=== PATIENT | female | born 1990 | race Caucasian/White ===

== ENCOUNTER 2020-07-22 19:19 | Emergency (ER) | payer OTHER, SELFPAY ==
[2020-07-22] VITALS (18 sets, daily range): BP systolic 108–152; BP diastolic 66–94; PULSE 85–118; RESP 16–18; TEMP 36.6–37.1; O2SAT 93–100
[2020-07-22 19:43] LABS: Basophils Absolute Auto 0.1 K/mm3 (0.0-0.1); Basophils Percent Auto 0.5 % (0.2-1.2); Eosinophils Absolute Auto 0.3 K/mm3 (0-0.3); Eosinophils Percent Auto 2.3 % (0-4.4); Hematocrit 43.4 % (37.0-47.0); Hemoglobin 14.7 g/dL (12.0-15.0); Immature Granulocyte Absolute 0.04 K/mm3 (0.00-0.031); Immature Granulocyte Percent A 0.3 % (0-0.5); Lymphocytes Percent Auto 23.8 % (18.3-44.2); Mean Corpuscular HGB Conc 33.9 g/dl (32-36); Mean Corpuscular Hemoglobin 29.5 pg (26-34); Mean Corpuscular Volume 87.1 fl (80-100); Mean Platelet Volume 8.9 fl (7.4-10.4); Monocytes Absolute Auto 0.5 K/mm3 (0.1-0.6); Monocytes Percent Auto 4.3 % (2.6-8.5); Neutrophils Absolute Auto 8.7 K/mm3 (1.3-6.7); Neutrophils Percent Auto 68.8 % (45.5-73.1); Platelet Count Result 275 k/mm3 (150-375); Red Blood Count 4.98 M/mm3 (4.2-5.4); Red Cell Distribution Width 12.3 % (11.5-14.5); White Blood Count 12.6 K/mm3 (4.5-10.0)
[2020-07-22 19:53] LABS: Add Urine Microscopic? YES; Appearance Urine Cloudy (Clear); Bilirubin Urine Negative (Negative); Blood Urine Negative (Negative); Color Urine Yellow (Yellow); Glucose Urine UA Negative (Negative); Ketones Urine Negative (Negative); Leukocyte Esterase Ur 2+ LEU/UL (Negative); Mucus Urine Rare /lpf; Nitrate Urine Negative (Negative); Protein Urine Negative (Negative); Specific Grav Ur 1.024 (1.001-1.035); Squamous Epithelial Cell Urine Many /hpf (Few); Urobilinogen Urine Negative mg/dL (<2.0); WBC Urine 21-30 /hpf
[2020-07-22 19:58] LABS: Alanine Aminotransferase 42 U/L (4-35); Albumin Level 4.8 g/dL (3.5-5.1); Alkaline Phosphatase 80 U/L (38-126); Anion Gap 12 mmol/L (8-16); Aspartate Amino Transferase 34 U/L (14-36); Bilirubin,Total 0.5 mg/dL (0.2-1.3); Blood Urea Nitrogen 14 mg/dL (7-17); Calcium 9.7 mg/dL (8.4-10.2); Carbon Dioxide 23 mmol/L (22-30); Chloride 105 mmol/L (98-107); Estimated CRCL calculation 91 ml/min; Estimated Glomerular Filt Rate > 60; Glucose 97 mg/dL (65-105); Lipase 46 U/L (23-300); Potassium 3.8 mmol/L (3.4-5.0); Sodium 140 mmol/L (137-145)
--- NOTE | 2020-07-22 20:08 | PC.NURSE ---
pt ambulatory to ED c/o lower bilateral abd/pelvic pain radiating to both flanks. pt denies urinary s/s. denies burning, pain, frequency with urination. denies vaginal bleeding/discharge. hx of uti and hx kidney stones, reports pain feels the same.
[2020-07-22] MEDS: SODIUM CHLORIDE 0.9% IV 1,000 ML 999 ML IV CONT (21:59)
--- NOTE | 2020-07-22 22:08 | ED.ABDPAIN ---
HPI - Abdominal Pain General Chief Complaint: Abdominal Pain Stated Complaint: abd pain/ back pain Time Seen by Provider: 07/22/20 19:50 Source: patient Mode of arrival: ambulatory Limitations: no limitations History of Present Illness HPI narrative: 30-year-old female Basically healthy but she has had UTIs and kidney stones before She complains of several days of burning low midline abdominal discomfort and some dysuria Pain radiates up into both flanks and is relatively constant She has not had a fever, she did have some nausea but has not vomited, no hematuria, no diarrhea Her periods are irregular because of an implant, she has a previous cholecystectomy Related Data Allergies Allergy/AdvReac Type Severity Reaction Status Date / Time ciprofloxacin Allergy Unknown Hives Verified 07/22/20 20:14 Penicillins Allergy Unknown Unknown Verified 07/22/20 20:14 sulfamethizole Allergy Unknown Hives Verified 07/22/20 20:14 trimethoprim Allergy Unknown Rash Verified 07/22/20 20:14 sulfamethoxazole AdvReac Severe Nausea and Verified 11/17/17 10:13 Vomiting Review of Systems Review of Systems: All systems reviewed & are unremarkable except as noted in HPI and below Constitutional: Constitutional: Reports no additional constitutional complaints, Denies chills, Denies fever(s) and Denies headache(s) Eyes: Eyes: Reports no additional eye complaints and Denies change in vision ENT: Denies headache(s) and Denies sore throat Cardiovascular: Cardiovascular: Denies chest pain and Denies dyspnea Respiratory: Respiratory: Denies cough and Denies dyspnea Gastrointestinal: Gastrointestinal: Reports abdominal pain, Denies diarrhea, Reports nausea and Denies vomiting Genitourinary: Genitourinary: Denies urinary frequency, Reports dysuria and Reports flank pain Musculoskeletal: Musculoskeletal: Denies deformity, Denies arthralgias, Denies joint swelling and Denies numbness Integumentary/Breasts: Skin/Breast: Denies rash and Denies wounds Neurologic: Denies headache(s), Denies focal weakness and Denies numbness Psychiatric: Psychiatric: Reports no additional psychiatric complaints Endocrine: Endocrine: Reports no additional endocrine complaints Hematologic/Lymphatic: Hematologic/Lymphatic: Reports no additional hematologic/lymphatic complaints Allergic/Immunologic: Allergic/Immunologic: Reports no additional allergic/immunologic complaints [facility] Family History Family History (Updated 11/25/17 @ 13:40 by DOCTOR UNKNOWN) Other Diabetes mellitus Family history of arthritis Hypertension Social History Social History Smoking status: Never smoker Alcohol intake: current Exam Const: General: cooperative, healthy appearing, no acute distress and alert Orientation/consciousness: patient oriented x3 (alert) HENMT: Head: normal to inspection, normocephalic and atraumatic Ears: external ears normal General nose exam: no epistaxis Eyes: Conjunctivae: conjunctivae normal EOM: EOMs intact bilaterally Neck: Neck: normal visual inspection, supple and no JVD Resp: Effort & Inspection: normal respiratory effort and not labored Auscultation: no rales, no rhonchi, no wheezes and other (BS =) Cardio: Rate: regular rate Rhythm: regular rhythm Heart sounds: no murmurs GI: GI Palp: Yes Soft to palpation, Yes Tenderness to palpation present (GI) (Mild, suprapubic), No Guarding due to palpation present (GI) and No Rebound tenderness present : General: Yes CVA tenderness (Mild, bilateral) Skin: General skin exam: normal color and no rashes or lesions noted Neuro: General: patient oriented x3 (alert) and moves all extremities Speech: normal speech Extrem: General: normal to inspection and no pedal edema Psych: Affect: normal affect Course Course Emergency Course: Discussed with patient regarding her allergies which do sound like real hives with Cipro or Bactrim, but some unknown childhood issue with p
== END 2020-07-22 23:33 | disposition home or self-care (01) ==
PROVIDERS: Emergency Provider Emergency Medicine; PCP Physician Assistant
DX: N15.9 Renal tubulo-interstitial disease, unspecified (principal); Z87.442 Personal history of urinary calculi
CPT/HCPCS: 36415; 80053; 81001; 81025; 83690; 85025; 87086; 87088; 96365; 99284; J0696; J7030

== ENCOUNTER 2020-09-06 08:17 | Emergency (ER) | payer OTHER, SELFPAY ==
--- NOTE | ~2020-09-06 | XR_ITS ---
EXAMINATION: XR chest 1V portable 09/06/2020 09:01 INDICATION: Fever and weakness. Prior history of pneumonia. PROCEDURE: AP portable chest COMPARISON: No prior studies for comparison. FINDINGS: The lungs are clear. The cardiomediastinal silhouette is within normal limits. There are no pleural effusions. There is no pneumothorax suspected. IMPRESSION: 1: NO ACUTE CARDIOPULMONARY DISEASE. Reviewed, dictated and finalized at location A.
[2020-09-06 08:23] VITALS: BP 107/80; PULSE 92; RESP 16; TEMP 36.5; O2SAT 100
--- NOTE | 2020-09-06 08:48 | ECG_ITS ---
Measurements Intervals [place] Rate: 74 P: 31 GA: 141 QRS: -8 QRSD: 88 T: 13 QT: 372 QTc: 414 Interpretive Statements SINUS RHYTHM BORDERLINE T WAVE ABNORMALITY- INFERIOR LEADS BASELINE ARTIFACT- II, III, AVR, AVL, AVF, V2-V6 BORDERLINE ECG Electronically Signed On 09-06-2020 10:29:55 CDT by Fabio Bradford D.O.
[2020-09-06 09:12] LABS: Basophils Percent Auto 0.6 % (0.2-1.2); Eosinophils Absolute Auto 0.3 K/mm3 (0-0.3); Eosinophils Percent Auto 4.2 % (0-4.4); Hematocrit 43.2 % (37.0-47.0); Hemoglobin 14.7 g/dL (12.0-15.0); Immature Granulocyte Absolute 0.03 K/mm3 (0.00-0.031); Immature Granulocyte Percent A 0.4 % (0-0.5); Lymphocytes Absolute Auto 1.77 K/mm3 (0.9-3.2); Mean Corpuscular Hemoglobin 29.5 pg (26-34); Mean Corpuscular Volume 86.7 fl (80-100); Mean Platelet Volume 9.4 fl (7.4-10.4); Monocytes Absolute Auto 0.4 K/mm3 (0.1-0.6); Monocytes Percent Auto 6.1 % (2.6-8.5); Neutrophils Absolute Auto 4.5 K/mm3 (1.3-6.7); Neutrophils Percent Auto 63.7 % (45.5-73.1); Platelet Count Result 240 k/mm3 (150-375); Red Blood Count 4.98 M/mm3 (4.2-5.4); Red Cell Distribution Width 11.9 % (11.5-14.5); White Blood Count 7.1 K/mm3 (4.5-10.0)
[2020-09-06 09:21] LABS: INR 0.8; Prothrombin Time 11.3 Seconds (11.1-14.7)
[2020-09-06 09:22] LABS: Partial Thromboplastin Time 25.2 SECONDS (22.3-36.8)
--- NOTE | 2020-09-06 09:22 | ED.FEVER ---
HPI - Fever General Chief Complaint: Fever Stated Complaint: Possible seizure Time Seen by Provider: 09/06/20 08:23 Source: patient and RN notes reviewed Mode of arrival: ambulatory Limitations: no limitations History of Present Illness HPI Narrative: This is 30 year old female who presents for evaluation of fever. She states she woke up this morning at 3 am. She states she was sleeping under a weighted blanket. She felt hot so she checked her temperature and it was 103 F. Soon after , she states she was shaking all over uncontrollably. She states it was similar to when she received an epidural. She was awake when this occurred and it lasted 2 minutes. She reports mild low back pain and fatigue. She took ibuprofen this morning. She denies chest pain, abdominal pain, nausea, vomiting, cough, shortness of breath or headache. She reports runny nose and sinus congestion thought to be due to seasonal allergies. She states she had covid in December and this feels different. Related Data Allergies Allergy/AdvReac Type Severity Reaction Status Date / Time ciprofloxacin Allergy Unknown Hives Verified 07/22/20 20:14 Penicillins Allergy Unknown Unknown Verified 07/22/20 20:14 sulfamethizole Allergy Unknown Hives Verified 07/22/20 20:14 trimethoprim Allergy Unknown Rash Verified 07/22/20 20:14 sulfamethoxazole AdvReac Severe Nausea and Verified 11/17/17 10:13 Vomiting Review of Systems Review of Systems: All systems reviewed & are unremarkable except as noted in HPI and below PMFSH Past Medical History Medical History (Updated 09/06/20 @ 11:24 by Michelle Blackburn MD) Anxiety Depression UTI (urinary tract infection) Surgical History Surgical History (Updated 09/06/20 @ 10:50 by Michelle Blackburn MD) Hx of cholecystectomy Family History Family History (Updated 11/25/17 @ 13:40 by DOCTOR UNKNOWN) Other Diabetes mellitus Family history of arthritis Hypertension Social History Social History Smoking status: Never smoker Alcohol intake: current Exam Const: General: no acute distress and alert Orientation/consciousness: patient oriented x3 HENMT: Head: normocephalic and atraumatic Ears: hearing grossly normal bilaterally and TM's normal bilaterally Face and sinus: normal facial exam, sinuses nontender and face symmetric Mouth: Yes Normal oral and palatal mucosa present, Yes lip normal, Yes oropharynx normal and Yes moist mucous membranes Eyes: Pupils: Equal, round and reactive pupils present EOM: EOMs intact bilaterally Resp: Effort & Inspection: normal respiratory effort and no retractions Auscultation: clear to auscultation bilaterally Cardio: Rate: regular rate Rhythm: regular rhythm Heart sounds: no murmurs GI: GI Palp: Yes Soft to palpation, No Tenderness to palpation present (GI) and No Guarding due to palpation present (GI) Auscultation: normal bowel sounds : General: Yes no CVA tenderness Skin: General skin exam: normal color Rashes: no rashes Neuro: General: patient oriented x3, moves all extremities and CN's II-XI intact bilaterally Extrem: General: normal to inspection Psych: Mental Status: mental status grossly normal Affect: normal affect Course Reevaluation(s) Reevaluation #1: I have discussed with patient that labs are unremarkable other than urine. She will be started on antibiotics. she denies any complaints and she understands discharge plan. Her shaking sounds like rigors. She has normal neuro exam so I do not think CT brain needed at this time. Date: 09/06/20 Time: 11:22 Vital Signs Vital signs: Vital Signs Temperature 97.7 F 09/06/20 08:23 Pulse Rate 92 09/06/20 08:23 Respiratory Rate 16 09/06/20 08:23 Blood Pressure 107/80 09/06/20 08:23 Pulse Oximetry 100 09/06/20 08:23 Temperature 97.7 F 09/06/20 08:23 Pulse Rate 79 09/06/20 11:38 Respiratory Rate 19 09/06/20 11:38 Blood Pressure 121/84 09/06/20 11:3
[2020-09-06 09:24] LABS: Alanine Aminotransferase 49 U/L (4-35); Albumin Level 4.6 g/dL (3.5-5.1); Alkaline Phosphatase 75 U/L (38-126); Anion Gap 12 mmol/L (8-16); Aspartate Amino Transferase 48 U/L (14-36); Bilirubin,Total 0.8 mg/dL (0.2-1.3); Blood Urea Nitrogen 11 mg/dL (7-17); CRP 2.1 mg/dL (<1.0); Calcium 9.5 mg/dL (8.4-10.2); Carbon Dioxide 22 mmol/L (22-30); Chloride 103 mmol/L (98-107); Estimated CRCL calculation 102 ml/min; Estimated Glomerular Filt Rate > 60; Glucose 118 mg/dL (65-110); Potassium 4.5 mmol/L (3.4-5.0); Sodium 137 mmol/L (137-145)
[2020-09-06 09:31] LABS: Add Urine Microscopic? YES; Appearance Urine Clear (Clear); Bacteria Urine Trace /hpf; Bilirubin Urine Negative (Negative); Blood Urine Negative (Negative); Color Urine Yellow (Yellow); Glucose Urine UA Negative (Negative); Ketones Urine Negative (Negative); Leukocyte Esterase Ur 2+ LEU/UL (Negative); Mucus Urine Moderate /lpf; Nitrate Urine Negative (Negative); Protein Urine Negative (Negative); Specific Grav Ur 1.027 (1.001-1.035); Squamous Epithelial Cell Urine Many /hpf (Few); Urobilinogen Urine Negative mg/dL (<2.0); WBC Urine 31-50 /hpf
--- NOTE | 2020-09-06 09:31 | PC.NURSE ---
lab, jana donaldson
[2020-09-06 09:39] LABS: Creatine Kinase 78 U/L (30-135)
[2020-09-06] MEDS: SODIUM CHLORIDE 0.9% IV 1,000 ML 999 ML IV CONT (09:45)
[2020-09-06 11:38] VITALS: BP 121/84; PULSE 79; RESP 19; O2SAT 100
[2020-09-06 18:52] LABS: SARS-CoV-2 RNA PCR Negative
== END 2020-09-06 11:41 | disposition home or self-care (01) ==
PROVIDERS: Emergency Provider General Practice; PCP Physician Assistant
DX: N39.0 Urinary tract infection, site not specified (principal); R50.9 Fever, unspecified; Z86.16 Personal history of COVID-19; Z20.822 Contact with and (suspected) exposure to COVID-19; R94.31 Abnormal electrocardiogram [ECG] [EKG]
CPT/HCPCS: 36415; 71045; 80053; 81001; 82550; 83605; 85025; 85610; 85730; 86140; 87077; 87081; 87086; 87088; 87804; 87880; 93005; 96361; 96365; 99284; C9803; J0696; J7030; U0003; U0005

== ENCOUNTER 2021-02-05 15:14 | Emergency (ER) | payer OTHER, SELFPAY ==
--- NOTE | ~2021-02-05 | XR_ITS ---
EXAMINATION: XR chest 1V portable INDICATION: Chest heaviness and cough TECHNIQUE: Portable AP chest at 1642 hours COMPARISON: 09/06/2020 FINDINGS: There are patchy airspace opacities of the mid and lower lung zones. No pleural effusion or pneumothorax is identified. The cardiomediastinal silhouette is normal. IMPRESSION: 1. Patchy opacities of the mid and lower lung zones, likely pneumonia. Reviewed, dictated and finalized at location F. MER OPERATOR
--- NOTE | 2021-02-05 15:18 | ECG_ITS ---
Measurements Intervals [place] Rate: 81 P: 33 MT: 127 QRS: 24 QRSD: 92 T: 11 QT: 356 QTc: 414 Interpretive Statements SINUS RHYTHM BASELINE ARTIFACT- I, III, AVL NORMAL ECG Electronically Signed On 02-05-2021 15:39:08 [employer] by Fabio Bradford D.O.
[2021-02-05 15:20] VITALS: BP 117/61; PULSE 85; RESP 16; TEMP 36.2; O2SAT 100
--- NOTE | 2021-02-05 16:49 | ED.URI ---
HPI - URI/Sore Throat General Chief Complaint: Upper Respiratory Infection Stated Complaint: covid exposure/chest pressure Time Seen by Provider: 02/05/21 16:30 Source: patient Mode of arrival: ambulatory Limitations: no limitations History of Present Illness HPI Narrative: Patient presents with Covid symptoms, coughing, sore throat, body ache, loss of taste and smell over the last 2 to 3 days. Patient son tested positive for Covid Related Data Allergies Allergy/AdvReac Type Severity Reaction Status Date / Time ciprofloxacin Allergy Unknown Hives Verified 07/22/20 20:14 Penicillins Allergy Unknown Unknown Verified 07/22/20 20:14 sulfamethizole Allergy Unknown Hives Verified 07/22/20 20:14 trimethoprim Allergy Unknown Rash Verified 07/22/20 20:14 sulfamethoxazole AdvReac Severe Nausea and Verified 11/17/17 10:13 Vomiting Review of Systems Review of Systems: CONSTITUTIONAL: Denies fever, chills, or sweats. EYES: Denies visual changes, redness, or discharge. ENT: Denies rhinorrhea, congestion, sore throat, or otalgia. CARDIOVASCULAR: Denies chest pain, palpitations, or edema. RESPIRATORY: Denies cough or dyspnea. GASTROINTESTINAL: Denies abdominal pain, nausea, vomiting, or diarrhea. GENITOURINARY: Denies dysuria or hematuria. SKIN: Denies rash or itching. MUSCULOSKELETAL: Denies back pain, joint pain, or myalgia. NEUROLOGIC: Denies headache, numbness, or weakness. PSYCHIATRIC: Denies anxiety or depression. PMFSH Past Medical History Medical History Anxiety Depression UTI (urinary tract infection) Surgical History Surgical History Hx of cholecystectomy Family History Family History Other Diabetes mellitus Family history of arthritis Hypertension Social History Social History Smoking status: Never smoker Alcohol intake: current Exam Narrative: General appearance: Well-developed, well-nourished does not look in any respiratory distress Skin: Normal color Head: Normocephalic, nontraumatic Eyes: Clear conjunctiva ENT: Oropharynx normal, ears normal, nose normal Neck: Supple, nontender Chest and respiratory: Airway patent, no respiratory distress, no accessory muscle use Heart: Regular rate/rhythm Abdomen: Soft, nontender, no organomegaly, quiet bowel sounds Vascular: Normal peripheral pulses, normal capillary refill. Musculoskeletal: Normal range of motion, nontender back Neurologic: Alert and oriented ?3, [employer] is normal as tested, no gross motor deficit Course Course Emergency Course: Stable Vital Signs Vital signs: Vital Signs Temperature 36.2 C L 02/05/21 15:20 Pulse Rate 85 02/05/21 15:20 Respiratory Rate 16 02/05/21 15:20 Blood Pressure 117/61 02/05/21 15:20 Pulse Oximetry 100 02/05/21 15:20 Temperature 36.2 C L 02/05/21 15:20 Pulse Rate 85 02/05/21 15:20 Respiratory Rate 16 02/05/21 15:20 Blood Pressure 117/61 02/05/21 15:20 Pulse Oximetry 100 02/05/21 15:20 MDM - URI/Sore Throat MDM Narrative Medical decision making narrative: Patient is not vaccinated for COVID, oxygenation on room air 100%, no fever, complaining of Covid symptoms, her son who lives with her tested positive for Covid. Chest x-ray showed slight pneumonia at this time. Patient would be okay to be discharged home to follow up with Covid instruction at home. Differential Diagnosis Differential diagnosis: Likely upper respiratory infection and viral infection Imaging Data Radiologist's impression: I
[2021-02-05 17:10] VITALS: BP 105/61; PULSE 86; RESP 17; O2SAT 98
== END 2021-02-05 17:15 | disposition home or self-care (01) ==
PROVIDERS: Emergency Provider Emergency Medicine; PCP Physician Assistant
DX: U07.1 COVID-19 (principal); J98.8 Other specified respiratory disorders; Z87.440 Personal history of urinary (tract) infections
CPT/HCPCS: 71045; 93005; 99283

== ENCOUNTER 2023-05-18 09:49 | Emergency (ER) | payer OTHER, SELFPAY ==
[2023-05-18 09:55] VITALS: BP 125/80; PULSE 100; RESP 16; TEMP 36.4; O2SAT 100
[2023-05-18] MEDS: HYDROcodone/acetaminophen (*CRX) 5-325 MG TABLET 1 TAB PO (10:22)
--- NOTE | 2023-05-18 11:58 | ED.SKABFB ---
HPI - Skin/Abscess/Foreign Bdy General Chief complaint: Skin/Abscess/Foreign Body Stated complaint: Abscess inner R thigh Time Seen by Provider: 05/18/23 10:09 History of Present Illness HPI narrative: 32-year-old female presents to the emergency department for painful lump to her right groin that started 2 days ago. Patient states areas gotten larger and more painful since then. She has been using heating pads with some improvement. Denies fever vomiting. Related Data Allergies Allergy/AdvReac Type Severity Reaction Status Date / Time ciprofloxacin Allergy Intermediate Hives Verified 05/18/23 10:01 sulfamethizole Allergy Intermediate Hives Verified 05/18/23 10:01 trimethoprim Allergy Intermediate Rash Verified 05/18/23 10:01 Penicillins Allergy Unknown Unknown Verified 05/18/23 10:01 amoxicillin Allergy Unknown Verified 05/18/23 10:01 sulfamethoxazole AdvReac Severe Nausea and Verified 05/18/23 10:01 Vomiting Review of Systems Review of Systems: CONSTITUTIONAL: Denies fever, chills, or sweats. EYES: Denies visual changes, redness, or discharge. ENT: Denies rhinorrhea, congestion, sore throat, or otalgia. CARDIOVASCULAR: Denies chest pain, palpitations, or edema. RESPIRATORY: Denies cough or dyspnea. GASTROINTESTINAL: Denies abdominal pain, nausea, vomiting, or diarrhea. GENITOURINARY: Denies dysuria or hematuria. SKIN: See HPI. MUSCULOSKELETAL: Denies back pain, joint pain, or myalgia. NEUROLOGIC: Denies headache, numbness, or weakness. PSYCHIATRIC: Denies anxiety or depression. [facility] Past Medical History Medical History ADHD Anxiety Depression Encounter for IUD insertion 11/24/10 Mirena insertion 10/27/16 Mirena insertion Encounter for IUD removal 06/06/15 Mirena removal Seasonal allergies UTI (urinary tract infection) Surgical History Surgical History Hx of cholecystectomy Family History Family History Father Diabetes mellitus Mother Diabetes mellitus Other Family history of arthritis Hypertension Social History Social History (Reviewed 04/09/24 @ 12:00 by ANN Delgado Smoking status: Never smoker Alcohol intake: current Alcohol use details: occasional Substance use: current Substance use type: marijuana Living arrangements: other Additional living arrangements comments: boyfriend and children Occupation/Education: occupation Gender identity (if verbalized by the patient): Female Exam Narrative: GENERAL: Well-appearing, well-nourished, and in no acute distress. HEAD: Normocephalic, atraumatic. NECK: Supple. EXTREMITIES: Normal range of motion. No edema. SKIN: Approximately 1.5 cm area of fluctuance to the right inguinal region with surrounding induration and erythema. It is spontaneously draining clear fluid. No areas of crepitus. It does not extend into the perineum or the labia. NEURO: No focal deficits. Alert and oriented x3 Course Vital Signs Vital signs: Vital Signs Temperature 97.6 F 05/18/23 09:55 Pulse Rate 100 05/18/23 09:55 Respiratory Rate 16 05/18/23 09:55 Blood Pressure 125/80 05/18/23 09:55 Pulse Oximetry 100 05/18/23 09:55 Oxygen Delivery Room Air 05/18/23 09:55 Temperature 97.6 F 05/18/23 09:55 Pulse Rate 100 05/18/23 09:55 Respiratory Rate 16 05/18/23 09:55 Blood Pressure 125/80 05/18/23 09:55 Pulse Oximetry 100 05/18/23 09:55 Oxygen Delivery Room Air 05/18/23 09:55 Procedures Abscess I/D other: Date of Incision: 05/18/23 Time of Incision: 12:02 Side (if applicable): right Local Anesthetic: lidocaine 1% and with epi Amount of anesthesia used (mL): 3 Technique: incised with #11 blade Amount of fluid expressed (mL): 3 Packing used?: plain
[2023-05-18] MEDS: DOXYCYCLINE HYCLATE 100 MG TABLET PO (12:06)
== END 2023-05-18 12:18 | disposition home or self-care (01) ==
PROVIDERS: Emergency Provider Physician Assistant; PCP Physician Assistant
DX: L02.214 Cutaneous abscess of groin (principal); F32.A Depression, unspecified; F90.9 Attention-deficit hyperactivity disorder, unspecified type; F41.9 Anxiety disorder, unspecified
CPT/HCPCS: 10061; 99283; A9270